=== PATIENT | female | born 1985 | race Caucasian/White ===

== ENCOUNTER 2016-11-16 14:55 | Emergency (ER) | payer SELFPAY ==
[2016-11-16 15:15] VITALS: TEMP 98.1
--- NOTE | 2016-11-16 15:44 | ED.PDOC ---
History of Present Illness - General Chief Complaint: Problem Stated Complaint: Urinary frequency and buring Time Seen by Provider: 11/16/16 15:38 Source: patient Exam Limitations: no limitations - History of Present Illness Timing/Duration: yesterday Quality: severe, burning Onset Location: suprapubic Allergies/Adverse Reactions: Allergies NO KNOWN ALLERGY Allergy (Verified 11/16/16 15:14) Home Medications: Ambulatory Orders Sulfa/Trimeth 800/160 (Ds) Tab [Bactrim DS Tab] 1 unit PO BID #6 tab 11/16/16 Review of Systems - Review of Systems Constitutional: Denies: chills, fever EENTM: States: no symptoms reported Respiratory: States: no symptoms reported Cardiology: States: no symptoms reported Gastrointestinal/Abdominal: States: no symptoms reported Genitourinary: States: dysuria, frequency. Denies: discharge, hematuria Musculoskeletal: States: no symptoms reported Skin: States: no symptoms reported Neurological: States: no symptoms reported Endocrine: States: no symptoms reported Hematologic/Lymphatic: States: no symptoms reported All other Systems: Reviewed and Negative Past Medical History (General) - Vaccination History Hx Influenza Vaccination: No - Activities of Daily Living Hospice Agency (if applicable):: None - Female History Patient is a Female of Child Bearing Age (10 -59 yrs old): No Patient : No Family Medical History - Family History Mother Family History: Unknown Physical Exam - Physical Exam General Appearance: Alert, Well Nourished Eyes, Ears, Nose, Throat Exam: PERRL/EOMI, normal ENT inspection Neck: non-tender, full range of motion Cardiovascular/Respiratory: regular rate, rhythm, no M/R/G Gastrointestinal/Abdominal: normal bowel sounds, soft, tenderness - SUPRAPUBIC Back Exam: normal inspection, no CVA tenderness Extremity: normal range of motion, non-tender Neurologic: no motor/sensory deficits, alert Skin Exam: normal color, warm/dry Lymphatic: no adenopathy Progress - Results/Orders Results/Orders: UTI PER UA. ABX. Departure - Departure Clinical Impression: Acute cystitis with hematuria, Proteinuria, Ketonuria Disposition: Discharge to Home or Self Care Condition: Good Departure Forms: ED Discharge - Pt. Copy, Patient Portal Self Enrollment Instructions: DI for Urinary Tract Infection (UTI) Diet: regular diet Activity: increase activity as tolerated Prescriptions: Sulfa/Trimeth 800/160 (Ds) Tab [Bactrim DS Tab] 1 unit PO BID #6 tab Home Medications: Ambulatory Orders Sulfa/Trimeth 800/160 (Ds) Tab [Bactrim DS Tab] 1 unit PO BID #6 tab 11/16/16 Additional Instructions: Your urine analysis suggests you are a little dehydrated as well, so please try to start drinking 64 oz of water per day.
[2016-11-16] MEDS ORDERED: cefTRIAXone SODIUM 1 GM VIAL IM ONE (16:22)
[2016-11-16] MEDS ORDERED: LIDOCAINE 1% 10 ML VIAL INJ ONE (16:25)
[2016-11-16 16:51] VITALS: BP 146/44; O2SAT 96
== END 2016-11-16 16:51 | disposition home or self-care (01) ==
LOC: ER 14:55
DX: N30.01 Acute cystitis with hematuria (principal); R80.9 Proteinuria, unspecified; R82.4 Acetonuria
CPT/HCPCS: 81001; 87086; J0696

== ENCOUNTER 2017-04-19 19:59 | Emergency (ER) | payer BC ==
--- NOTE | 2017-04-19 20:11 | ED.PDOC ---
History of Present Illness - General Chief Complaint: ENT Problem Stated Complaint: sore throat Time Seen by Provider: 04/19/17 20:11 Source: patient Exam Limitations: no limitations - History of Present Illness Initial Comments: Julieta Osman 31 y/o female stated that she had achy throat,nasal congestion, clear productive cough for the last 2 days;no ill contact no fever ,chills no foreign travel Timing/Duration: gradual, other - 2 days ago Severity: moderate EENT Location: nose, throat Prearrival Treatment: no prearrival treatment Improving Factors: nothing Worsening Factors: nothing Associated Symptoms: cough, sore throat Allergies/Adverse Reactions: Allergies NO KNOWN ALLERGY Allergy (Verified 04/19/17 20:14) Home Medications: Ambulatory Orders Sulfa/Trimeth 800/160 (Ds) Tab [Bactrim DS Tab] 1 unit PO BID #6 tab 11/16/16 Benzonatate Perles [Tessalon Perles] 200 mg PO BID #30 cap 04/19/17 Review of Systems - Review of Systems Constitutional: States: no symptoms reported EENTM: States: see HPI Respiratory: States: see HPI Cardiology: States: no symptoms reported Gastrointestinal/Abdominal: States: no symptoms reported Genitourinary: States: no symptoms reported Past Medical History (General) - Patient Medical History Surgical History: other - ,bilateral tubal ligation - Vaccination History Hx Influenza Vaccination: No - Female History Patient is a Female of Child Bearing Age (10 -59 yrs old): Yes Hx Last Menstrual Period: 04/05/17 Patient : No Family Medical History - Family History Mother Family History: Unknown Physical Exam - Physical Exam General Appearance: Alert, No apparent distress Eye Exam: bilateral normal Ear Exam: bilateral ear: auricle normal, canal normal, TM normal Nasal Exam: other - nasal congestion Throat Exam: normal mouth inspection, other - pharyngeal erythema Neck: non-tender, supple Cardiovascular/Respiratory: regular rate, rhythm, normal peripheral pulses, normal breath sounds Abdominal Exam: non-tender, no organomegaly Neurologic: alert, oriented x 3 Skin Exam: normal color, warm/dry Progress - Progress Progress: 04/19/17 21:45 Vital Signs - 8 hr 04/19/17 04/19/17 20:01 20:58 Temperature 98.7 F Pulse Rate 115 H Pulse Rate [ 117 H left] Respiratory 18 18 Rate Blood Pressure 99/63 [left] O2 Sat by Pulse 96 100 Oximetry - Results/Orders Results/Orders: Laboratory Tests 04/19/17 20:55 Group A Strep DNA Negative - EKG/XRAY/CT XRAY: chest - no acute abnormality Departure - Departure Clinical Impression: Nasopharyngitis acute Time of Disposition: 21:46 Disposition: Discharge to Home or Self Care Condition: Fair Departure Forms: ED Discharge - Pt. Copy, Patient Portal Self Enrollment Instructions: DI for Common Cold, Common Cold Prescriptions: Benzonatate Perles [Tessalon Perles] 200 mg PO BID #30 cap Home Medications: Ambulatory Orders Sulfa/Trimeth 800/160 (Ds) Tab [Bactrim DS Tab] 1 unit PO BID #6 tab 11/16/16 Benzonatate Perles [Tessalon Perles] 200 mg PO BID #30 cap 04/19/17 Additional Instructions: Continue with oxymetazolone nose spray-2 sprays each nostril am/pm 3 days on 3 days off;May take Benadryl 25 mg(over the counter 1-2 capsules 3 x a day for nasal congestion/cough
[2017-04-19] MEDS ORDERED: predniSONE 10 MG TAB PO ONE (20:18)
[2017-04-19] MEDS ORDERED: diphenhydrAMINE HCL 25 MG CAP PO ONE (20:18)
[2017-04-19] MEDS ORDERED: BENZONATATE PERLES 100 MG CAP PO ONE (20:18)
[2017-04-19] MEDS ORDERED: OXYMETAZOLINE NASAL SPRAY 15 ML BTTL BNAS PRN (20:18)
--- NOTE | 2017-04-19 20:35 | RAD ---
EXAM DESCRIPTION: Chest,1 View CLINICAL HISTORY: 31 years Female cough COMPARISON: None. FINDINGS: The cardiomediastinal silhouette appears unremarkable. No consolidating infiltrates or pleural effusions. No pneumothorax. IMPRESSION: No acute abnormality is identified. Electronically signed by: Jessica Johnson 04/19/2017 8:34 PM CDT
[2017-04-19] MEDS ORDERED: IPRATROPIUM/ALBUTEROL 3 ML VIAL NEB ONE (20:54)
[2017-04-19 21:23] VITALS: O2SAT 100
[2017-04-19 22:16] VITALS: BP 124/65; TEMP 98.1
== END 2017-04-19 22:00 | disposition home or self-care (01) ==
LOC: ER 19:59
DX: J00 Acute nasopharyngitis [common cold] (principal)
CPT/HCPCS: 71010; 87070; 87651; 94640; J7512; J7620; Q0163

== ENCOUNTER 2018-08-05 20:02 | Emergency (ER) | payer SELFPAY ==
[2018-08-05] MEDS ORDERED: SULFA/TRIMETH 800/160 (DS) TAB 1 EA TAB PO ONE (20:22)
[2018-08-05] MEDS ORDERED: CIPROFLOXACIN 500 MG TAB PO ONE (20:22)
[2018-08-05] MEDS ORDERED: FLUCONAZOLE 100 MG TAB PO ONE (20:22)
--- NOTE | 2018-08-05 20:26 | ED.PDOC ---
History of Present Illness - General Chief Complaint: Lower Extremity Injury Stated Complaint: Left foot red and swollen Time Seen by Provider: 08/05/18 20:04 Source: patient Exam Limitations: no limitations - History of Present Illness Initial Comments: the patient's a 33-year-old female presenting to the emergency room secondary to cellulitis developing in her left foot. It extends along the dorsum of her foot from the webbing between the fourth and fifth digits. She does have athlete's foot between those toes. Erythema extends up to the ankle. No evidence of any abscess formation and no evidence of any significant drainage. No previous infections at that site. Timing/Duration: 24 hours Severity: moderate Improving Factors: nothing Worsening Factors: nothing Associated Symptoms: denies symptoms Allergies/Adverse Reactions: Allergies NO KNOWN ALLERGY Allergy (Verified 04/19/17 20:14) Home Medications: Ambulatory Orders Sulfa/Trimeth 800/160 (Ds) Tab [Bactrim DS Tab] 1 unit PO BID #6 tab 11/16/16 Benzonatate Perles [Tessalon Perles] 200 mg PO BID #30 cap 04/19/17 Ciprofloxacin [Cipro] 500 mg PO BID #10 tab 08/05/18 Sulfa/Trimeth 800/160 (Ds) Tab [Bactrim DS Tab] 1 ea PO BID #10 tab 08/05/18 Review of Systems - Review of Systems Constitutional: States: no symptoms reported EENTM: States: no symptoms reported Respiratory: States: no symptoms reported Cardiology: States: no symptoms reported Gastrointestinal/Abdominal: States: no symptoms reported Genitourinary: States: no symptoms reported Musculoskeletal: States: no symptoms reported Skin: States: see HPI Neurological: States: no symptoms reported Endocrine: States: no symptoms reported All other Systems: No Change from Baseline Past Medical History (General) - Patient Medical History Hx Asthma: No Hx Cardiac Disorders: No Hx Diabetes: No - Vaccination History Hx Tetanus, Diphtheria Vaccination: No Hx Influenza Vaccination: No - Social History Hx Tobacco Use: Yes Hx Alcohol Use: No - Female History Hx Last Menstrual Period: 04/05/17 Patient : No Family Medical History - Family History Mother Family History: Unknown Physical Exam - Physical Exam General Appearance: Alert, Comfortable, No apparent distress Eye Exam: bilateral normal Ears, Nose, Throat: hearing grossly normal Neck: full range of motion Respiratory: no respiratory distress, no accessory muscle use Cardiovascular/Chest: normal peripheral pulses, no edema Peripheral Pulses: dorsalis pedis,right: 2+, dorsalis pedis,left: 2+ Rectal Exam: deferred Extremity: normal range of motion, no calf tenderness, normal capillary refill Neurologic: trial consultant II-XII nml as tested, alert, normal mood/affect, oriented x 3 Skin Exam: normal color - with the exception of the cellulitis to the dorsal aspect of the left foot Progress - Progress Progress: 08/05/18 20:24 the patient's a 33-year-old female presenting to the emergency room secondary to cellulitis of the left foot extending from a fungal infection between the webbing of her fourth and fifth digits. She is given doses of Bactrim ciprofloxacin and Diflucan here. She needs to soak the foot in white vinegar and water nightly for about 15 minutes for the next week. The patient will be called in Bactrim and ciprofloxacin for the next 5 days. She needs to trace out the redness with a pen to make sure that is not progressing. ER warnings were given. She also needs to obtain an [id number] antifungal foot spray. Departure - Departure Clinical Impression: Cellulitis of foot, left Disposition: Discharge to Home or Self Care Departure Forms: ED Discharge - Pt. Copy, Patient Portal Self Enrollment Instructions: Cellulitis and Erysipelas (Skin Infections) Diet: regular diet Activity: increase activity as tolerated Prescriptions: Ciprofloxacin [Cipro] 500 mg PO BID #10 tab Sulfa/Trimeth 800/160 (Ds) Tab [Bactrim DS Tab] 1 ea PO BID #10 tab Home Medications: Ambulatory Orders Sulfa/Trimeth 800/160 (Ds) Tab [Bactrim DS Tab] 1 unit PO BID #6 tab 11/16/16 Benzonatate Perles [Tessalon Perles] 200 mg PO BID #30 cap 04/19/17 Ciprofloxacin [Cipro] 500 mg PO BID #10 tab 08/05/18 Sulfa/Trimeth 800/160 (Ds) Tab [Bactrim DS Tab] 1 ea PO BID #10 tab 08/05/18 Additional Instructions: the patient's a 33-year-old female presenting to the emergency room secondary to cellulitis of the left foot extending from a fungal infection between the webbing of her fourth and fifth digits. She is given doses of Bactrim ciprofloxacin and Diflucan here. She needs to soak the foot in white vinegar and water nightly for about 15 minutes for the next week. The patient will be called in Bactrim and ciprofloxacin for the next 5 days. She needs to trace out the redness with a pen to make sure that is not progressing. ER warnings were given. She also needs to obtain an [id number] antifungal foot spray.
[2018-08-05 20:30] VITALS: BP 118/93; TEMP 98; O2SAT 99
== END 2018-08-05 20:45 | disposition home or self-care (01) ==
LOC: ER 20:02
DX: L03.116 Cellulitis of left lower limb (principal); B35.3 Tinea pedis; Z87.891 Personal history of nicotine dependence

== ENCOUNTER → 2020-08-13 | Outpatient (CLI) | payer OTHER | LOC: YCFC.O 15:13 | PROVIDERS: ATTEND Nurse Practitioner Family | DX: Z11.59 Encounter for screening for other viral diseases (principal) ==

== ENCOUNTER 2020-08-24 15:39 | Emergency (ER) | payer OTHER, SELFPAY ==
[2020-08-24] MEDS ORDERED: KETOROLAC TROMETHAMINE INJ 30 MG/ML VIAL IM ONE (15:58)
[2020-08-24] MEDS ORDERED: KETOROLAC TROMETHAMINE INJ 30 MG/ML VIAL IV ONE (16:10)
--- NOTE | 2020-08-24 16:32 | ED.PDOC ---
History of Present Illness - General Chief Complaint: GI Problem Time Seen by Provider: 08/24/20 15:54 Information Source: patient Exam Limitations: no limitations - History of Present Illness Abdominal Pain Onset Location: generalized abdomen Quality: moderate Review of Systems - Review of Systems Constitutional: States: chills. Denies: fever EENTM: Denies: tearing Respiratory: Denies: cough, orthopnea, short of breath Cardiology: Denies: chest pain, syncope Gastrointestinal/Abdominal: States: abdominal pain, diarrhea, nausea, vomiting Genitourinary: Denies: discharge, frequency, hematuria Musculoskeletal: Denies: muscle pain Skin: Denies: lesions Neurological: Denies: see HPI, numbness Endocrine: Denies: flushing, intolerance to cold, intolerance to heat, unexplained weight gain Hematologic/Lymphatic: Denies: anemia, easy bleeding, easy bruising Past Medical History (General) - Patient Medical History Hx Seizures: No Hx Stroke: No Hx Dementia: No Hx Asthma: No Hx of COPD: No Hx Cardiac Disorders: No Hx Congestive Heart Failure: No Hx Pacemaker: No Hx Hypertension: No Hx Thyroid Disease: No Hx Diabetes: No Hx Gastroesophageal Reflux: No Hx Renal Disease: No Hx Cancer: No Hx of HIV: No Hx Hepatitis C: No Hx MRSA: No - Vaccination History Hx Tetanus, Diphtheria Vaccination: No Hx Influenza Vaccination: No - Social History Hx Tobacco Use: Yes Hx Alcohol Use: No - Female History Hx Last Menstrual Period: 04/05/17 Patient : No Family Medical History - Family History Mother Family History: Unknown Physical Exam - Physical Exam General Appearance: Alert Eyes, Ears, Nose, Throat Exam: PERRL/EOMI, normal ENT inspection, TMs normal, pharynx normal Neck: non-tender, full range of motion, supple, normal inspection Respiratory: chest non-tender, lungs clear, normal breath sounds, no respiratory distress Cardiovascular/Chest: normal peripheral pulses, no edema, no gallop, no JVD, tachycardia Gastrointestinal/Abdominal: normal bowel sounds, non tender, soft, no organomegaly Back Exam: normal inspection, no CVA tenderness Extremity: normal range of motion, non-tender Neurologic: industrial photographer II-XII nml as tested, no motor/sensory deficits, alert, normal mood/affect, oriented x 3 Skin Exam: normal color Lymphatic: no adenopathy Special Observations: Eating chips/snacks Progress - Progress Progress: 08/24/20 17:04 The patient is a 35-year-old female that presents emergency department system consistent with gastroenteritis. IV hydration discharge the patient follow-up instructions and return precautions verbalized understanding Departure - Departure Clinical Impression: Gastroenteritis Disposition: Discharge to Home or Self Care Condition: Good Departure Forms: ED Discharge - Pt. Copy, Patient Portal Self Enrollment Instructions: Viral Gastroenteritis Referrals: [facility] [Primary Care Provider] - 1-2 Weeks Prescriptions: Ondansetron Odt [Zofran ODT] 8 mg PO BID 7 Days #7 tab NS Home Medications: Ambulatory Orders Ondansetron Odt [Zofran ODT] 8 mg PO BID 7 Days #7 tab NS 08/24/20 Additional Instructions: Please return to the emergency department immediately if symptoms worsen. In short follow-up primary care physician in 1 to 2 days Oral hydration encouraged You may use [id number] Imodium for loose stools if it continues
[2020-08-24 16:39] VITALS: O2SAT 98
[2020-08-24] MEDS ORDERED: SODIUM CHLORIDE 0.9% 1000ML 1,000 ML IVS ONE (16:41)
[2020-08-24 18:05] VITALS: BP 103/68; TEMP 98.8
== END 2020-08-24 18:05 | disposition home or self-care (01) ==
LOC: ER 15:39
DX: K52.9 Noninfective gastroenteritis and colitis, unspecified (principal); F17.200 Nicotine dependence, unspecified, uncomplicated; Z20.822 Contact with and (suspected) exposure to COVID-19
CPT/HCPCS: 36415; 80053; 83690; 84703; 85025; 87502; 87635; J1885; J7030